=== PATIENT | female | born 1950 | race Caucasian/White ===

== ENCOUNTER 2020-03-08 18:59 | Emergency (ER) | payer MEDICARE, MEDICAID ==
[~2020-03-08] VITALS: Ht 160 cm; Wt 65.9 kg
[2020-03-08 19:12] VITALS: BP 153/80
--- NOTE | 2020-03-08 19:36 | NUR ---
PT LEFT LOBBY
== END 2020-03-08 19:51 | disposition left against medical advice (07) ==
LOC: ER 19:01
DX: Z00.8 Encounter for other general examination (principal); Z53.21 Procedure and treatment not carried out due to patient leaving prior to being seen by health care provider

== ENCOUNTER 2020-03-09 07:32 | Emergency (ER) | payer MEDICARE, MEDICAID ==
[~2020-03-09] VITALS: Ht 160 cm; Wt 65.9 kg
[2020-03-09 07:33] VITALS: BP 174/91
[2020-03-09] MEDS ORDERED: LORazepam 1 MG tablet PO ONE (08:15)
== END 2020-03-09 08:34 | disposition home or self-care (01) ==
LOC: ER 07:32
DX: F41.9 Anxiety disorder, unspecified (principal); E11.9 Type 2 diabetes mellitus without complications; Z88.2 Allergy status to sulfonamides; Z88.5 Allergy status to narcotic agent
CPT/HCPCS: 82948; 99284